=== PATIENT | female | born 1990 | race Asian ===

== ENCOUNTER 2018-11-11 19:57 | Emergency (ER) | payer OTHER ==
[2018-11-11 21:19] VITALS: BP 114/81
[2018-11-11] MEDS ORDERED: IBUPROFEN PO ONE (21:19)
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
== END 2018-11-12 00:30 | disposition left against medical advice (07) ==
LOC: ED 19:57
DX: M54.2 Cervicalgia (principal); Z53.21 Procedure and treatment not carried out due to patient leaving prior to being seen by health care provider
CPT/HCPCS: 72040; 72100